=== PATIENT | male | born 1950 | race Caucasian/White ===

== ENCOUNTER → 2022-05-24 | Day surgery (SDC) | payer MEDICARE, BC ==
[~2022-05-24] MED LIST: ALPRAZolam 0.25 MG TAB PO PRN; ALPRAZolam 0.5 MG TAB PO PRN; ASPIRIN 325 MG TAB PO STA; ATORVASTATIN 80 MG TAB PO STA; HEPARIN SODIUM 1,000 UN/ML (10ML VL) IVP ONE; HEPARIN SODIUM,PORCINE 10,000 UNIT in SODIUM CHLORIDE 0.9% 1,000 ML IRRIGATION PRN; HEPARIN SODIUM,PORCINE 2,500 UNIT in SODIUM CHLORIDE 0.9% 250 ML IRRIGATION PRN; LIDOCAINE 1% INJ 10MG/ML (5 ML VIAL-PF) SQ ONE; MIDAZOLAM 2 MG/2 ML VIAL IVP ONE; NITROGLYCERIN SL TABS 0.4 MG TAB SUBLINGUAL PRN; RX INFO: IV CONTRAST WAS GIVEN 1 EACH MISC MISCELLANE PRN; SODIUM CHLORIDE 0.9% 1,000 ML IV SCH; SODIUM CHLORIDE 0.9% 1,000 ML in EMPTY BAG 1 BAG IV SCH; VERAPAMIL SYRINGE (5 MG/10 ML) IVP ONE; fentaNYL (PF) 50 MCG/ML 2 ML AMP IVP ONE
[2022-05-24 08:46] LABS: Glucose,Whole Blood 181 mg/dL (70-110)
[2022-05-24 08:55] VITALS: RESP 16; TEMP 97.9
[2022-05-24 08:55] LABS: Basophils % (A) 0 %; Eosinophils # (A) 0.1 k/uL (0-0.7); Eosinophils % (A) 1 %; HCT 42.9 % (39.0-53.0); HGB 15.4 gm/dL (13.0-17.5); Lymphocytes % (A) 17 %; MCH 31.4 pg (25.0-35.0); MCV 87.2 fL (80.0-100.0); Mean Platelet Volume 8.1; Monocytes # (A) 0.3 k/uL (0-1.0); Monocytes % (A) 5 %; Neutrophils # (A) 4.3 k/uL (1.3-7.7); Neutrophils % (A) 74 %; Platelet Count 185 k/uL (150-450); RBC 4.92 m/uL (4.30-5.90); RDW 13.8 % (11.5-15.5); WBC 5.7 k/uL (3.8-10.6)
[2022-05-24 09:15] LABS: African American GFR (CKD) >90 (>60 ml/min/1.73 sqM); Anion Gap 8 mmol/L; Blood Urea Nitrogen 18 mg/dL (9-20); Carbon Dioxide 26 mmol/L (22-30); Chloride 107 mmol/L (98-107); Glucose 198 mg/dL (74-99); Non-African American GFR(CKD) 88 (>60 ml/min/1.73 sqM); Potassium 4.7 mmol/L (3.5-5.1); Sodium 141 mmol/L (137-145)
[2022-05-24] MEDS: BENZOCAINE SPRAY 1 CAN MUCOUS MEM ONE ×2 (10:55→10:59)
--- NOTE | 2022-05-24 11:13 | P.PCN ---
Date of Procedure: 05/24/22 Description of Procedure: TRANSESOPHAGEAL ECHOCARDIOGRAM INTERNATIONAL ACCOUNTANT: TED BARKLEY MD, RPVI INDICATION: Aortic stenosis SEDATION: Conscious sedation COMPLICATION: None LEVEL OF SEDATION Moderate with sedation length of 12 minutes PROCEDURE DESCRIPTION: After obtaining an informed consent, the patient was brought to transesophageal echocardiogram room. Pulse oximetry and heart monitors were attached to the patient. The patient throat was sprayed using lidocaine. The patient was turned into left lateral position. After that a bite guard was placed. After an appropriate conscious sedation was initiated, the transesophageal echocardiogram was advanced through a bite guard into the mid esophagus. A 2-D echocardiogram images, color Doppler images, continuous wave images, pulse-wave images, of various cardiac structure were performed. After that the transesophageal echocardiogram probe was advanced into the stomach and fixed to obtain transgastric view was. The probe was brought into the mid esophagus. Inter-atrial septum was interrogated using 2D images, color Doppler images, and then contrast study. After that transesophageal echocardiogram was withdrawn out and upon withdrawing the descending thoracic aorta all the way up to the a [facility] was evaluated. FINDING: The left ventricular dimension and systolic function appeared to be within normal limits with ejection fraction appears to be in the range of 50-55%. The right ventricle appeared to be mildly dilated with normal function. The left atrium and right atrium are mildly dilated. The left atrial appendage appeared to be free from any thrombus. Aortic valve appears to be bicuspid follow-up with fusion of the right and left coronary cusps and evidence of severe aortic stenosis with mean gradient of 36 mmHg and and peak gradient of 73 mmHg. The peak systolic velocity was more than 4 m/s. There is mild aortic insufficiency seen. The mitral valve appeared to be mildly thickened with mild to moderate MR. Normal tricuspid valve and pulmonary valve. No evidence of pericardial effusion. CONCLUSION: 1. Normal left ventricular dimension and systolic function and normal right ventricular dimension and systolic function 2. Bicuspid aortic valve with fusion of the right and left coronary cusps and evidence of severe aortic stenosis by gradient 3. Mildly thickened mitral valve leaflets with mild to moderate MR 4. Mild biatrial enlargement 5. Intact interatrial septum and intact left atrial appendage 6. No evidence of pericardial effusion
--- NOTE | 2022-05-24 11:34 | P.PCN ---
Date of Procedure: 05/24/22 Operative Findings: CARDIAC CATHETERIZATION PERFORMING PHYSICIAN: Melvin Pacheco MD, RPVI PROCEDURE PERFORMED: Selective right and left coronary angiogram INDICATION: Aortic stenosis COMPLICATION: None APPROACH: Right radial artery LEVEL OF SEDATION: Moderate with a sedation length of 30 minutes PROCEDURE DESCRIPTION: After obtaining an informed consent, the patient was brought to cardiac agriculture laborer. Local anesthesia was performed using lidocaine subcutaneously. The right radial artery was cannulated using Seldinger technique, the guidewire passed easily, following that we advanced a 5-Romansh sheath dilator assembly, the wire and dilator were removed and sheath was flushed. Following that, 2 mg of verapamil along with 5000 unit heparin were given. Selective right and left coronary angiogram using a 6-Romansh JR4 and JL 3.5 cath eters. The procedure was completed there was no complication. SELECTIVE CORONARY ANGIOGRAM: The right coronary artery: Large caliber vessel and a dominant vessel. The RCA is angiographically normal. Distally bifurcates into PDA and PLV branches both appeared to be angiographically normal. Left main: It is angiographically normal and bifurcates into a LCx and LAD The left circumflex: Large caliber vessel nondominant vessel. The LCx system appears to be angiographically normal. The LCx gives rises into a large OM branch which appeared to be angiographically normal The left anterior descending artery: Large caliber vessel. The LAD is angiographically normal and gives rise into a diagonal branch which also appeared to be angiographically normal. CONCLUSION: 1. Normal coronary and POSTPROCEDURE MANAGEMENT: Evaluated the patient for aortic valve replacement
[2022-05-24 19:00] VITALS: PULSE 56
[2022-05-24 19:01] VITALS: BP 127/68
== END ==
LOC: EDSEX 05-17 12:00 → CATHCVL 08:18
PROVIDERS: ATTEND Internal Medicine Interventional Cardiology
DX: I35.0 Nonrheumatic aortic (valve) stenosis (principal)
CPT/HCPCS: 93312; 93320; 93325; 93454; 80048; 85025; C1769 ×2; C1894; J2250; J2001; J3010; J1644

== ENCOUNTER 2024-03-22 12:09 | Inpatient (IN) | payer MEDICARE, BC ==
--- NOTE | 2024-03-22 12:45 | ED ---
General Adult HPI - General Chief complaint: Shortness of Breath Stated complaint: SOB Time Seen by Provider: 03/22/24 12:13 Source: patient, RN/MD, EMS, RN notes reviewed, old records reviewed Mode of arrival: EMS Limitations: no limitations - History of Present Illness Initial comments: Patient is a 73-year-old male present to the emergency department as a transfer from [facility]. Patient has had progressive dyspnea over the past couple of weeks. Patient states his doctor questioned amiodarone toxicity. Patient has no cough. Dyspnea is exertional as well as orthopnea. No leg edema. No fever. No chest pain. Patient states symptoms do feel somewhat like previous CHF. Patient x-ray and CT scan showed bilateral pneumonia. - Related Data Home Medications Medication Instructions Recorded Confirmed Ezetimibe [Zetia] 10 mg PO HS 05/15/22 03/22/24 Fluticasone Nasal [place] [Flonase 2 spray EA NOSTRIL HS 05/15/22 03/22/24 Nasal [place]] Gabapentin [Neurontin] 300 mg PO BID 05/15/22 03/22/24 Omeprazole [PriLOSEC] 40 mg PO HS 05/15/22 03/22/24 Rivaroxaban [Xarelto] 20 mg PO HS 05/15/22 03/22/24 Tamsulosin [Flomax] 0.4 mg PO HS 05/15/22 03/22/24 Albuterol Inhaler [Ventolin Hfa 1 - 2 puff INHALATION RT-Q4H PRN 03/22/24 03/22/24 Inhaler] Amiodarone [Cordarone] 200 mg PO DAILY 03/22/24 03/22/24 Furosemide [Lasix] 40 mg PO DAILY 03/22/24 03/22/24 Metoprolol Succinate (ER) [Toprol 50 mg PO BID 03/22/24 03/22/24 Xl] Osimertinib Mesylate [Tagrisso] 80 mg PO DAILY 03/22/24 03/22/24 Spironolactone 25 mg PO HS 03/22/24 03/22/24 metFORMIN HCL 500 mg PO BID 03/22/24 03/22/24 Allergies Allergy/AdvReac Type Severity Reaction Status Date / Time No Known Allergies Allergy Verified 03/22/24 13:36 Review of Systems ROS Statement: Those systems with pertinent positive or pertinent negative responses have been documented in the HPI. ROS Other: All systems not noted in ROS Statement are negative. Constitutional: Denies: fever, chills Eyes: Denies: eye pain Respiratory: Reports: as per HPI, dyspnea. Denies: cough Cardiovascular: Reports: dyspnea on exertion, orthopnea. Denies: chest pain, edema Gastrointestinal: Denies: abdominal pain Musculoskeletal: Denies: back pain Past Medical History Past Medical History: Atrial Fibrillation, Diabetes Mellitus, GERD/Reflux, Hyperlipidemia, Hypertension, Neurologic Disorder, Prostate Disorder, Sleep Apnea/CPAP/BIPAP Additional Past Medical History / Comment(s): getting tired with exertion lately. 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 spinal stenosis lower back. arthritis ( psoriatic). uses cpap History of Any Multi-Drug Resistant Organisms: None Reported Additional Past Surgical History / Comment(s): both knee replaced. carpal tunnel bilaterally. braydon nerve surgery. glossopharyngeal neuralgia brain procedure. coritsone shots in wrists Past Anesthesia/Blood Transfusion Reactions: No Reported Reaction Past Psychological History: No Psychological Hx Reported Smoking Status: Former smoker Past Alcohol Use History: Daily Past Drug Use History: None Reported - Past Family History Mother Family Medical History: No Reported History Father Family Medical History: Coronary Artery Disease (CAD) Additional Family Medical History / Comment(s): tripel by pass General Exam Limitations: no limitations General appearance: alert, in no apparent distress Head exam: Present: normocephalic Eye exam: Present: normal appearance, PERRL, EOMI Neck exam: Present: normal inspection Respiratory exam: Present: normal lung sounds bilaterally. Absent: respiratory distress, wheezes, rales, decreased breath sounds Cardiovascular Exam: Present: regular rate, normal rhythm GI/Abdominal exam: Present: soft. Absent: tenderness Extremities exam: Present: normal inspection. Absent: pedal edema, calf tenderness Neurological exam: Present: alert Psychiatric exam: Present: normal affect, normal mood Skin exam: Present: normal color Course Vital Signs 03/22/24 03/22/24 12:11 13:39 Pulse Rate 81 78 Respiratory 17 18 Rate Blood Pressure 125/75 124/66 O2 Sat by Pulse 93 L 93 L Oximetry Procedures - ABG Interpretation Ph: 7.44 PCO2: 39 PO2: 41 Bicarbonate: 13 Interpretation: other (hypoxia) Medical Decision Making - Medical Decision Making Was pt. sent in by a medical professional or institution (, TOREY, GROCERY SACKER, urgent care, hospital, or residential...) When possible be specific @ -Patient was transferred from [facility] Did you speak to anyone other than the patient for history (EMS, parent, family, police, friend...)? What history was obtained from this source @ -Transferring physician Did you review nursing and triage notes (agree or disagree)? Why? @ -I reviewed and agree with nursing and triage notes Were old charts reviewed (outside hosp., previous admission, EMS record, old EKG, old radiological studies, urgent care reports/EKG's, residential records)? Report findings @ -Chart reviewed from [facility] Differential Diagnosis (chest pain, altered mental status, abdominal pain women, abdominal pain men, vaginal bleeding, weakness, fever, dyspnea, syncope, headache, dizziness, GI bleed, back pain, seizure, CVA, palpatations, mental health, musculoskeletal)? @ -Differential Dyspnea: Coronary syndrome, arrhythmia, tamponade, asthma, COPD, pulmonary embolism, pneumonia, pneumothorax, pulmonary effusion, anaphylaxis, diabetic ketoacidosis, flailed chest, pulmonary contusion, diaphragmatic rupture, anemia, neuromuscular, this is not meant to be an all-inclusive list. EKG interpreted by me (3pts min.). @ -As above X-rays interpreted by me (1pt min.). @ -None done CT interpreted by me (1pt min.). @ -None done U/S interpreted by me (1pt. min.). @ -None done What testing was considered but not performed or refused? (CT, X-rays, U/S, labs)? Why? @ -None What meds were considered but not given or refused? Why? @ -None Did you discuss the management of the patient with other professionals (professionals i.e. , TOREY, GROCERY SACKER, lab, RT, psych nurse, social services specialist, mumps developer, teacher, international first officer, social work case manager)? Give summary @ -[facility] Dr. Epsteni who will admit covering Dr. Arciniega Was smoking cessation discussed for >3mins.? @ -No Was critical care preformed (if so, how long)? @ -No Were there social determinants of health that impacted care today? How? (Homelessness, low income, unemployed, alcoholism, drug addiction, transportation, low edu. Level, literacy, decrease access to med. care, senior living, rehab)? @ -No Was there de-escalation of care discussed even if they declined (Discuss DNR or withdrawal of care, Hospice)? DNR status @ -No What co-morbidities impacted this encounter? (DM, HTN, Smoking, COPD, CAD, Cancer, CVA, ARF, Chemo, Hep., AIDS, mental health diagnosis, sleep apnea, morbid obesity)? @ -History of A-fib and CHF Was patient admitted / discharged? Hospital course, mention meds given and route, prescriptions, significant lab abnormalities, going to OR and other pertinent info. @ -Patient presents with dyspnea with evaluation concerning for pneumonia. Patient will be admitted and antibiotics will be continued. Consults will be placed. Admission orders written. Undiagnosed new problem with uncertain prognosis? @ -No Drug Therapy requiring intensive monitoring for toxicity (Heparin, Nitro, Insulin, Cardizem)? @ -No Were any procedures done? @ -No Diagnosis/symptom? @ -Bilateral pneumonia Acute, or Chronic, or Acute on Chronic? @ -Acute Uncomplicated (without systemic symptoms) or Complicated (systemic symptoms)? @ -Complicated with hypoxia Side effects of treatment? @ -No Exacerbation, Progression, or Severe Exacerbation? @ -No Poses a threat to life or bodily function? How? (Chest pain, [place], HI, pneumonia, PE, COPD, DKA, ARF, appy, cholecystitis, CVA, Diverticulitis, Homicidal, Suicidal, threat to staff... and all critical care pts) @ -Threat to pulmonary function - Lab Data Lab Results 03/22/24 Range/Units 12:48 Sample Site rrad ABG pH 7.44 (7.35-7.45) ABG pCO2 39 (35-45) mmHg ABG pO2 42 L* (83-108) mmHg ABG HCO3 27 H (21-25) mmol/L ABG Total CO2 28 H (19-24) mmol/L ABG O2 Saturation 80.8 L (94-97) % ABG Base Excess 2.4 mmol/L Von Test Yes Hemoglobin 13.6 (13.0-17.5) gm/dL FiO2 21 % Disposition Clinical Impression: Pneumonia, Hypoxia Disposition: ADMITTED IP TO THIS HOSP Condition: Serious Is patient prescribed a controlled substance at d/c from ED?: No Time of Disposition: 12:44
[2024-03-22] MEDS ORDERED: PNEUMONIA PROTOCOL UTILIZED 1 EACH MISC PO PRN (12:48)
[2024-03-22 12:53] LABS: ABG Base Excess 2.4 mmol/L; ABG HCO3 27 mmol/L (21-25); ABG Oxygen Saturation 80.8 % (94-97); ABG PCO2 39 mmHg (35-45); ABG PH 7.44 (7.35-7.45); ABG TCO2 28 mmol/L (19-24); Allen Test Performed? Yes
[2024-03-22 12:57] LABS: ABG PO2 42 mmHg (83-108)
[2024-03-22] MEDS ORDERED: RX INFO: IV CONTRAST WAS GIVEN 1 EACH MISC MISCELLANE PRN (16:24)
[2024-03-22] MEDS: ALBUTEROL NEBULIZED 2.5 MG/3 ML INHALATION PRN (16:24)
--- NOTE | 2024-03-22 17:56 | P.CNPUL ---
History of Present Illness Consult date: 03/22/24 Reason for consult: dyspnea History of present illness: 71-year-old male patient presenting with subacute shortness of breath. The patient has his majority of his care through [facility]. The patient was diagnosed having non-small cell lung cancer back in 2022. He was given stage IV disease based on the presence of a malignant pleural effusion. He was started on Tagrisso with good clinical response and the patient has been responding very well and recent CAT scan of the chest was done in January 2024 at [facility] indicated no residual malignancy. He is also noted congestion heart failure, he has undergone previous aortic valve replacement/TAVR and is known to have coronary artery disease and chronic atrial fibrillation. Other comorbidities include diabetes mellitus, hypertension hyperlipidemia and osteoarthritis. The patient was hospitalized few months back at [facility] for worsening shortness of breath and he was told that his shortness of breath was attributed to CHF. Currently is on amiodarone 200 mg p.o. daily. He is also on anticoagulation with Xarelto. He has developed progressive increased dyspnea. Chest x-ray that was done at an outside hospital indicated pneumonia and for that reason the patient was transferred to us. He is currently on 4 L of oxygen by nasal cannula. Blood gas on room air oxygen showed a pH of 7.4 with a pCO2 of 39 and pO2 of 41. The viral screen that was done also in an outside hospital was negative for RSV, influenza and COVID-19. No chest pain. No edema in lower extremities. No palpitation. No angina. No palpitations. Review of Systems Constitutional: Denies chills, Denies fever Eyes: denies as per HPI, denies blurred vision, denies bulging eye, denies decreased vision, denies diplopia, denies discharge, denies dry eye, denies irritation, denies itching, denies pain, denies photophobia, denies loss of peripheral vision, denies loss of vision, denies tunnel vision/blind spots Ears: deny: decreased hearing, ear discharge, earache, tinnitus Ears, nose, mouth and throat: Reports as per HPI Breasts: absent: as per HPI, gynecomastia Cardiovascular: Reports decreased exercise tolerance, Reports dyspnea on exertion, Reports irregular heart beat, Reports shortness of breath Respiratory: Reports as per HPI, Reports dyspnea Gastrointestinal: Reports as per HPI Genitourinary: Reports as per HPI Musculoskeletal: Reports as per HPI Musculoskeletal: absent: ankle pain, ankle stiffness, ankle swelling, as per HPI, elbow pain, elbow stiffness, elbow swelling, foot pain, foot stiffness, foot swelling, hand pain, hand stiffness, hand swelling, hip pain, hip stiffness, hip swelling, knee pain, knee stiffness, knee swelling, shoulder pain, shoulder stiffness, shoulder swelling, wrist pain, wrist stiffness, wrist swelling Integumentary: Reports as per HPI Neurological: Reports as per HPI Psychiatric: Reports as per HPI Endocrine: Reports as per HPI Hematologic/Lymphatic: Reports as per HPI Allergic/Immunologic: Reports as per HPI Past Medical History Past Medical History: Atrial Fibrillation, Diabetes Mellitus, GERD/Reflux, Hyperlipidemia, Hypertension, Neurologic Disorder, Prostate Disorder, Sleep Apnea/CPAP/BIPAP Additional Past Medical History / Comment(s): getting tired with exertion lately. 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 spinal stenosis lower back. arthritis ( psoriatic). uses cpap History of Any Multi-Drug Resistant Organisms: None Reported Additional Past Surgical History / Comment(s): both knee replaced. carpal tunnel bilaterally. braydon nerve surgery. glossopharyngeal neuralgia brain procedure. coritsone shots in wrists Past Anesthesia/Blood Transfusion Reactions: No Reported Reaction Past Psychological History: No Psychological Hx Reported Smoking Status: Former smoker Past Alcohol Use History: Daily Past Drug Use History: None Reported - Past Family History Mother Family Medical History: No Reported History Father Family Medical History: Coronary Artery Disease (CAD) Additional Family Medical History / Comment(s): tripel by pass Medications and Allergies Home Medications Medication Instructions Recorded Confirmed Type Ezetimibe [Zetia] 10 mg PO HS 05/15/22 03/22/24 History Fluticasone Nasal [place] [Flonase 2 spray EA NOSTRIL HS 05/15/22 03/22/24 History Nasal [place]] Gabapentin [Neurontin] 300 mg PO BID 05/15/22 03/22/24 History Omeprazole [PriLOSEC] 40 mg PO HS 05/15/22 03/22/24 History Rivaroxaban [Xarelto] 20 mg PO HS 05/15/22 03/22/24 History Tamsulosin [Flomax] 0.4 mg PO HS 05/15/22 03/22/24 History Albuterol Inhaler [Ventolin Hfa 1 - 2 puff INHALATION RT-Q4H PRN 03/22/24 03/22/24 History Inhaler] Amiodarone [Cordarone] 200 mg PO DAILY 03/22/24 03/22/24 History Furosemide [Lasix] 40 mg PO DAILY 03/22/24 03/22/24 History Metoprolol Succinate (ER) [Toprol 50 mg PO BID 03/22/24 03/22/24 History Xl] Osimertinib Mesylate [Tagrisso] 80 mg PO DAILY 03/22/24 03/22/24 History Spironolactone 25 mg PO HS 03/22/24 03/22/24 History metFORMIN HCL 500 mg PO BID 03/22/24 03/22/24 History Allergies Allergy/AdvReac Type Severity Reaction Status Date / Time No Known Allergies Allergy Verified 03/22/24 13:36 Physical Exam Vitals: Vital Signs Temp Pulse Resp BP Pulse Ox 03/22/24 17:29 98.0 F 84 17 130/64 91 L 03/22/24 16:36 78 03/22/24 16:23 75 03/22/24 16:00 75 19 146/63 93 L 03/22/24 15:54 97.6 F 98 21 146/63 92 L 03/22/24 13:39 78 18 124/66 93 L 03/22/24 12:11 81 17 125/75 93 L Intake and Output 03/22/24 03/22/24 03/22/24 06:59 14:59 22:59 Other: Weight 115.666 kg Calm and comfortable, currently on 4 L of oxygen by nasal cannula Head exam was generally normal. There was no scleral icterus or corneal arcus. Mucous membranes were moist. Neck was supple and without jugular venous distension, thyromegaly, or carotid bruits. Carotids were easily palpable bilaterally. There was no adenopathy. Lungs show crackles in lung bases bilaterally, and with normal diaphragmatic excursion. No wheezes or rales were noted. Cardiac exam revealed the PMI to be normally situated and sized. The rhythm was irregular and no extrasystoles were noted during several minutes of a uscultation. The first and second heart sounds were normal and physiologic splitting of the second heart sound was noted. There were no murmurs, rubs, clicks, or gallops. Abdominal exam revealed normal bowel sounds. The abdomen was soft, non-tender, and without masses, organomegaly, or appreciable enlargement of the abdominal aorta. Examination of the extremities revealed easily palpable radial, femoral and pedal pulses. There was no cyanosis, clubbing or edema. Examination of the skin revealed no evidence of significant rashes, suspicious appearing nevi or other concerning lesions. Neurologically, the patient is awake and alert and the patient does not have any focal neurological deficit. Cranial nerves are essentially intact. Results - Laboratory Findings ABG ABG pH 7.44 (7.35-7.45) 03/22/24 12:48 ABG pCO2 39 mmHg (35-45) 03/22/24 12:48 ABG pO2 42 mmHg (83-108) L* 03/22/24 12:48 ABG O2 Saturation 80.8 % (94-97) L 03/22/24 12:48 Abnormal lab findings: Abnormal Labs 03/22/24 12:48 ABG pO2 42 L* ABG HCO3 27 H ABG Total CO2 28 H ABG O2 Saturation 80.8 L - Diagnostic Findings Chest x-ray: image reviewed Assessment and Plan Plan: Acute hypoxic respiratory failure, currently on 4 L of oxygen by nasal cannula Subacute dyspnea with worsening shortness of breath and development of hypoxemic respiratory failure, currently under investigation. Rule out underlying pneumonia bacterial versus viral. Rule out drug-induced pneumonitis may get secondary to Tagrisso or amiodarone. Malignancy progression is felt to be less likely as the patient has responded nicely to Tagrisso in the past. 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 History of malignant pleural effusion on the left Coronary artery disease History of aortic valve stenosis status post TAVR Obstructive sleep apnea Chronic A-fib, rate is controlled for now and the patient has a bundle branch block pattern, right-sided Hypertension Hyperlipidemia CHF with preserved LV function Diabetes mellitus type 2 Osteoarthritis Chronic back pain BPH Peripheral neuropathy Plan Keep the patient on O2 at 4 L/min nasal cannula Check procalcitonin level and proBNP level Check Legionella urine antigen The viral screen has been negative Continue current antibiotic coverage with essentially empiric Hold Tagrisso Hold amiodarone Check CAT scan of the chest with contrast Will start steroids if there is concern for drug-induced pneumonitis Will continue to follow
--- NOTE | 2024-03-22 19:27 | P.HPIM ---
History of Present Illness H&P Date: 03/22/24 Chief Complaint: Shortness of breath 73-year-old male present to the emergency department as a transfer from [facility]. Patient has had progressive dyspnea over the past couple of weeks. Patient states his doctor questioned amiodarone toxicity. Patient has no cough. Dyspnea is exertional as well as orthopnea. No leg edema. No fever. No chest pain. Patient states symptoms do feel somewhat like previous CHF. Patient x-ray and CT scan showed bilateral pneumonia. The patient was hospitalized few months back at [facility] for worsening shortness of breath and he was told that his shortness of breath was attributed to CHF. Currently is on amiodarone 200 mg p.o. daily. He is also on anticoagulation with Xarelto. He has developed progressive increased dyspnea. Chest x-ray that was done at an outside hospital indicated pneumonia and for that reason the patient was transferred to us. He is currently on 4 L of oxygen by nasal cannula. Blood gas on room air oxygen showed a pH of 7.4 with a pCO2 of 39 and pO2 of 41. Review of Systems REVIEW OF SYSTEMS: CONSTITUTIONAL: No fever, no malaise, no fatigue. HEENT: No recent visual problems or hearing problems. Denied any sore throat. CARDIOVASCULAR: No chest pain, orthopnea, PND, no palpitations, no syncope. PULMONARY: No shortness of breath, no cough, no hemoptysis. GASTROINTESTINAL: No diarrhea, no nausea, no vomiting, no abdominal pain. NEUROLOGICAL: No headaches, no weakness, no numbness. HEMATOLOGICAL: Denies any bleeding or petechiae. GENITOURINARY: Denies any burning micturition, frequency, or urgency. MUSCULOSKELETAL/RHEUMATOLOGICAL: Denies any joint pain, swelling, or any muscle pain. ENDOCRINE: Denies any polyuria or polydipsia. The rest of the 14-point review of systems is negative. Past Medical History Past Medical History: Atrial Fibrillation, Diabetes Mellitus, GERD/Reflux, Hyperlipidemia, Hypertension, Neurologic Disorder, Prostate Disorder, Sleep Apnea/CPAP/BIPAP Additional Past Medical History / Comment(s): getting tired with exertion lately. 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 spinal stenosis lower back. arthritis ( psoriatic). uses cpap History of Any Multi-Drug Resistant Organisms: None Reported Additional Past Surgical History / Comment(s): both knee replaced. carpal tunnel bilaterally. braydon nerve surgery. glossopharyngeal neuralgia brain procedure. coritsone shots in wrists Past Anesthesia/Blood Transfusion Reactions: No Reported Reaction Past Psychological History: No Psychological Hx Reported Smoking Status: Former smoker Past Alcohol Use History: Daily Past Drug Use History: None Reported - Past Family History Mother Family Medical History: No Reported History Father Family Medical History: Coronary Artery Disease (CAD) Additional Family Medical History / Comment(s): tripel by pass Medications and Allergies Home Medications Medication Instructions Recorded Confirmed Type Ezetimibe [Zetia] 10 mg PO HS 05/15/22 03/22/24 History Fluticasone Nasal [place] [Flonase 2 spray EA NOSTRIL HS 05/15/22 03/22/24 History Nasal [place]] Gabapentin [Neurontin] 300 mg PO BID 05/15/22 03/22/24 History Omeprazole [PriLOSEC] 40 mg PO HS 05/15/22 03/22/24 History Rivaroxaban [Xarelto] 20 mg PO HS 05/15/22 03/22/24 History Tamsulosin [Flomax] 0.4 mg PO HS 05/15/22 03/22/24 History Albuterol Inhaler [Ventolin Hfa 1 - 2 puff INHALATION RT-Q4H PRN 03/22/24 03/22/24 History Inhaler] Amiodarone [Cordarone] 200 mg PO DAILY 03/22/24 03/22/24 History Furosemide [Lasix] 40 mg PO DAILY 03/22/24 03/22/24 History Metoprolol Succinate (ER) [Toprol 50 mg PO BID 03/22/24 03/22/24 History Xl] Osimertinib Mesylate [Tagrisso] 80 mg PO DAILY 03/22/24 03/22/24 History Spironolactone 25 mg PO HS 03/22/24 03/22/24 History metFORMIN HCL 500 mg PO BID 03/22/24 03/22/24 History Allergies Allergy/AdvReac Type Severity Reaction Status Date / Time No Known Allergies Allergy Verified 03/22/24 13:36 Physical Exam Vitals: Vital Signs Pulse Resp BP Pulse Ox 03/22/24 13:39 78 18 124/66 93 L 03/22/24 12:11 81 17 125/75 93 L Intake and Output 03/21/24 03/22/24 03/22/24 22:59 06:59 14:59 Other: Weight 115.666 kg General appearance: alert, in no apparent distress Head exam: Present: normocephalic Eye exam: Present: normal appearance, PERRL, EOMI Neck exam: Present: normal inspection Respiratory exam: Present: normal lung sounds bilaterally. Absent: respiratory distress, wheezes, rales, decreased breath sounds Cardiovascular Exam: Present: regular rate, normal rhythm GI/Abdominal exam: Present: soft. Absent: tenderness Extremities exam: Present: normal inspection. Absent: pedal edema, calf tenderness Neurological exam: Present: alert Psychiatric exam: Present: normal affect, normal mood Skin exam: Present: normal color Results Labs: Abnormal Lab Results - Last 24 Hours (Table) 03/22/24 Range/Units 12:48 ABG pO2 42 L* (83-108) mmHg ABG HCO3 27 H (21-25) mmol/L ABG Total CO2 28 H (19-24) mmol/L ABG O2 Saturation 80.8 L (94-97) % Assessment and Plan Assessment: 1. Acute hypoxic respiratory failure -Patient is currently on O2 at 4 L per nasal cannula; we will plan to titrate or wean as able 2. Possible pneumonia -Patient has been placed on IV Rocephin and azithromycin -Bronchodilator nebulizer treatments 4 times daily and as needed -Pulmonary is consulted; recommending to continue with empiric antibiotic coverage and also starting steroids for concern for possible drug-induced pneumonitis -CT of the chest is ordered and pending -Check urine Legionella antigen 3. Stage IV pulmonary adenocarcinoma; currently on Tagrisso, the third generation tyrosine kinase and is inhibitor for treatment of EGFR-TKI positive patients and the patient has received treatment through [facility]; Tagrisso is placed on hold per pulmonary recommendations. 4. History of left-sided malignant pleural effusion 5. Hypertension; metoprolol 50 mg twice daily; Aldactone 25 mg nightly 6. Hyperlipidemia; Zetia 10 mg daily 7. Diabetes mellitus type 2; metformin 500 mg twice daily; monitor Accu-Cheks q. ACH S with insulin sliding scale 8. Chronic atrial fibrillation; pulmonary recommending to hold amiodarone 9. Coronary artery disease/CHF DVT prophylaxis; SCDs/systemic anticoagulation CODE STATUS; full code
[2024-03-22] MEDS: RIVAROXABAN 20 MG TAB PO SCH (20:28)
[2024-03-22] MEDS: PANTOPRAZOLE 40 MG TABLET PO SCH (20:29)
[2024-03-22] MEDS: TAMSULOSIN 0.4 MG CAP.ER.24H PO SCH (20:29)
[2024-03-22] MEDS: metFORMIN 500 MG TAB PO SCH (20:29)
[2024-03-22] MEDS: SPIRONOLACTONE 25 MG TAB PO SCH (20:29)
[2024-03-22] MEDS: GABAPENTIN 300 MG CAP PO SCH (20:29)
[2024-03-22] MEDS: METOPROLOL SUCCINATE (ER) 50 MG TAB.ER.24H PO SCH (20:29)
[2024-03-22] MEDS: EZETIMIBE 10 MG TAB PO SCH (20:29)
[2024-03-22] MEDS: FLUTICASONE NASAL 50MCG/SPRAY 16GM BTL EA NOSTRIL SCH (20:31)
--- NOTE | 2024-03-22 23:58 | CT ---
EXAMINATION TYPE: CT chest w con CT DLP: 618.4 mGycm, Automated exposure control for dose reduction was used. DATE OF EXAM: 03/22/2024 7:54 PM COMPARISON: None. . CLINICAL INDICATION:Male, 73 years old with history of ILD; PHH, ILD, sob, hypoxia TECHNIQUE: Multiple axial images were obtained through the chest. Sagittal and coronal reformats were created for review. Contrast used:80 mL of Isovue 300 with IV Contrast Oral contrast used: (None if empty) FINDINGS: LUNGS/ PLEURA: There are fibrotic changes bilaterally in the mid to lower lungs, left greater than ri ght. There are significant interspersed groundglass opacities bilaterally as well. Lqzbs-[id number] left pleural effusion and trace right pleural effusion. No pneumothorax. AIRWAY: Central airways are patent. No visualized bronchiectasis. LOWER NECK: No significant findings. Unremarkable thyroid. MEDIASTINUM: Several nonenlarged mediastinal nodes. Mildly enlarged right subcarinal node with short axis 1.3 cm. No bulky or necrotic adenopathy. HEART: Heart is moderately enlarged. Status post TAVR. Moderate aortic calcification. Mild/moderate m itral valve calcification. No pericardial effusion. Mildly prominent pericardial fat. Small hiatal he rnia suggested with slightly patulous distal esophagus. VASCULATURE: Moderate atherosclerotic calcifications of the aorta and branches. Aortic measurements are difficult due to motion however the ascending aorta seems ectatic measuring up to 4.1 cm maximum. There is no dissection flap seen. Descending aorta is 2.9 cm. Suboptimal phase of contrast for evalu ating the pulmonary arteries, but there is no gross evidence of embolus. Pulmonary trunk is enlarged measuring 3.3 cm, the right pulmonary artery is 2.9 cm and the left is about 2.4 cm. SOFT TISSUES/LYMPH NODES: Unremarkable soft tissues. No axillary adenopathy. UPPER ABDOMEN: No significant findings. MUSCULOSKELETAL: No acute osseous abnormalities. Moderate disc degeneration changes are present throu ghout the visualized thoracolumbar spine. IMPRESSION: 1. Pulmonary fibrotic changes bilaterally, likely concordant with the patient's history of interstit ial lung disease. 2. Significant interspersed groundglass opacities bilaterally, may reflect exacerbation of interstit ial lung disease, other superimposed infectious/inflammatory process, and/or edema. 3. [id number] left pleural effusion and trace right pleural effusion. 4. Cardiomegaly and findings of pulmonary arterial hypertension. [facility], , 03/22/2024 11:56 PM
[2024-03-23] MEDS: ACETAMINOPHEN TAB 325 MG TAB PO PRN (00:25)
[2024-03-23 07:38] LABS: Basophils % (A) 0 %; Eosinophils # (A) 0.1 k/uL (0-0.7); Eosinophils % (A) 1 %; HCT 39.8 % (39.0-53.0); HGB 12.9 gm/dL (13.0-17.5); Lymphocytes # (A) 0.6 k/uL (1.0-4.8); Lymphocytes % (A) 7 %; MCH 28.8 pg (25.0-35.0); MCHC 32.3 g/dL (31.0-37.0); MCV 89.1 fL (80.0-100.0); Mean Platelet Volume 8.2; Monocytes # (A) 0.6 k/uL (0-1.0); Monocytes % (A) 7 %; Neutrophils # (A) 6.3 k/uL (1.3-7.7); Neutrophils % (A) 82 %; Platelet Count 133 k/uL (150-450); RBC 4.47 m/uL (4.30-5.90); RDW 15.4 % (11.5-15.5); WBC 7.6 k/uL (3.8-10.6)
[2024-03-23 07:47] LABS: African American GFR (CKD) >90 (>60 ml/min/1.73 sqM); Anion Gap 6 mmol/L; Blood Urea Nitrogen 17 mg/dL (9-20); Calcium 8.7 mg/dL (8.4-10.2); Carbon Dioxide 27 mmol/L (22-30); Chloride 105 mmol/L (98-107); Glucose 151 mg/dL (74-99); Non-African American GFR(CKD) 80 (>60 ml/min/1.73 sqM); Potassium 4.3 mmol/L (3.5-5.1); Sodium 138 mmol/L (137-145)
[2024-03-23] MEDS ORDERED: NON FORMULARY DRUG (Osimertinib Mesylate [Tagrisso] 80 MG Tablet) PO SCH (09:00)
--- NOTE | 2024-03-23 09:16 | XR ---
EXAMINATION TYPE: XR chest 2V DATE OF EXAM: 03/23/2024 COMPARISON: 03/21/2024 from [facility] HISTORY: Pneumonia TECHNIQUE: Frontal and lateral views of the chest are obtained. FINDINGS: There are scattered fluffy partially consolidative airspace opacities in the mid-lower lung zones esthela aterally. The upper lung [place] are clear. The heart and pulmonary vasculature are normal and there is no pulmonary vascular congestion. There is a small left pleural effusion. There is no pneumothorax. IMPRESSION: Findings most consistent with bilateral pneumonia with small left effusion. No change compared to pre vious. IMPRESSION: No acute cardiopulmonary process. [facility], , 03/23/2024 9:13 AM
[2024-03-23] MEDS: FUROSEMIDE 40 MG TAB PO SCH (09:29)
[2024-03-23] MEDS: AZITHROMYCIN 500 MG TAB PO SCH (09:29)
--- NOTE | 2024-03-23 11:39 | P.CRDCN ---
History of Present Illness Consult date: 03/23/24 Requesting physician: Destin Thorne Reason for Consult (text): dyspnea, concern for amiodarone induced Chief complaint: shortness of breath History of present illness: This is a pleasant 73-year-old gentleman with a past medical history of bicuspid aortic valve with severe aortic stenosis for which she was initially recommended to undergo SAVR but was subsequently diagnosed with non-small cell lung cancer and started on treatment with Tagrisso so subsequently underwent TAVR at the [facility]. He underwent cardiac catheterization in [address] Solis which showed no evidence of coronary artery disease. He has been following at the [facility] for cardiology. He was diagnosed with atrial fibrillation in 2019 that was paroxysmal. He was subsequently found to h ave persistent atrial fibrillation in September of this year and underwent cardioversion which lasted about 4 days and he subsequently underwent cardioversion after amiodarone loading in November after being hospitalized with congestive heart failure, likely diastolic in nature. He had been feeling well maintained on amiodarone 200 mg daily and maintaining sinus mechanism. Recently he has been feeling progressively more short of breath but no edema or weight gain noted at home. He initially presented to [facility] and thought to have pneumonia and was therefore transferred here to [facility]. Has been evaluated by pulmonary and felt to have drug-induced pneumonitis secondary to either Tagrisso versus amiodarone. He is being initiated on steroids. Amiodarone and Tagrisso have been placed on hold. He is currently on 8 L nasal cannula. NT proBNP was not elevated. He is overall feeling a bit better. Patient's most recent echocardiogram was done at the [facility] heat which he was told to have normal heart function and minimal perivalvular leak. Past Medical History Past Medical History: Atrial Fibrillation, Cancer, Diabetes Mellitus, GERD/Reflux, Hyperlipidemia, Hypertension, Neurologic Disorder, Prostate Diso rder, Sleep Apnea/CPAP/BIPAP Additional Past Medical History / Comment(s): getting tired with exertion lately. 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 spinal stenosis lower back. arthritis ( psoriatic). uses cpap, Diagnosed with Stage 4 Lung Cancer in 07/17 at [facility]. History of Any Multi-Drug Resistant Organisms: None Reported Additional Past Surgical History / Comment(s): both knee replaced. carpal tunnel bilaterally. braydon nerve surgery. glossopharyngeal neuralgia brain procedure. coritsone shots in wrists (still currently getting injections), TAVR 01/2023 at [facility]. Past Anesthesia/Blood Transfusion Reactions: No Reported Reaction Smoking Status: Former smoker - Past Family History Mother Family Medical History: No Reported History Father Family Medical History: Coronary Artery Disease (CAD) Additional Family Medical History / Comment(s): tripel by pass Medications and Allergies Home Medications Medication Instructions Recorded Confirmed Type Ezetimibe [Zetia] 10 mg PO HS 05/15/22 03/22/24 History Fluticasone Nasal [place] [Flonase 2 spray EA NOSTRIL HS 05/15/22 03/22/24 History Nasal [place]] Gabapentin [Neurontin] 300 mg PO BID 05/15/22 03/22/24 History Omeprazole [PriLOSEC] 40 mg PO HS 05/15/22 03/22/24 History Rivaroxaban [Xarelto] 20 mg PO HS 05/15/22 03/22/24 History Tamsulosin [Flomax] 0.4 mg PO HS 05/15/22 03/22/24 History Albuterol Inhaler [Ventolin Hfa 1 - 2 puff INHALATION RT-Q4H PRN 03/22/24 03/22/24 History Inhaler] Amiodarone [Cordarone] 200 mg PO DAILY 03/22/24 03/22/24 History Furosemide [Lasix] 40 mg PO DAILY 03/22/24 03/22/24 History Metoprolol Succinate (ER) [Toprol 50 mg PO BID 03/22/24 03/22/24 History Xl] Osimertinib Mesylate [Tagrisso] 80 mg PO DAILY 03/22/24 03/22/24 History Spironolactone 25 mg PO HS 03/22/24 03/22/24 History metFORMIN HCL 500 mg PO BID 03/22/24 03/22/24 History Allergies Allergy/AdvReac Type Severity Reaction Status Date / Time No Known Allergies Allergy Verified 03/22/24 13:36 Physical Exam Vitals: Vital Signs Temp Pulse Pulse Resp BP BP Pulse Ox 03/23/24 07:47 91 L 03/23/24 04:19 03/23/24 04:00 97.6 F 80 18 108/63 94 L 03/23/24 01:10 03/23/24 01:04 90 03/23/24 00:54 91 03/23/24 00:00 99.4 F 89 18 134/73 92 L 03/22/24 22:29 98.1 F 93 20 148/77 93 L 03/22/24 20:26 99.8 F H 100 20 139/74 88 L 03/22/24 19:28 90 L 03/22/24 18:30 98.6 F 89 15 133/70 87 L 03/22/24 17:40 93 17 130/64 90 L 03/22/24 17:29 98.0 F 84 17 130/64 91 L 03/22/24 16:36 78 03/22/24 16:23 75 03/22/24 16:10 79 21 126/63 90 L 03/22/24 16:00 75 19 146/63 93 L 03/22/24 15:54 97.6 F 98 21 146/63 92 L 03/22/24 13:39 78 18 124/66 93 L 03/22/24 12:11 81 17 125/75 93 L FiO2 03/23/24 07:47 03/23/24 04:19 60 03/23/24 04:00 03/23/24 01:10 60 03/23/24 01:04 03/23/24 00:54 03/23/24 00:00 03/22/24 22:29 03/22/24 20:26 03/22/24 19:28 03/22/24 18:30 03/22/24 17:40 03/22/24 17:29 03/22/24 16:36 03/22/24 16:23 03/22/24 16:10 03/22/24 16:00 03/22/24 15:54 03/22/24 13:39 03/22/24 12:11 Intake and Output 03/22/24 03/23/24 03/23/24 22:59 06:59 14:59 Intake Total 540 1100 Balance 540 1100 Intake: Oral 540 1100 Other: Voiding Method Urinal Weight 115.666 kg 75.5 kg PHYSICAL EXAMINATION: This is a 73-year-old male in no apparent distress at the time of my examination. VITAL SIGNS: Reviewed. HEENT: Head is atraumatic, normocephalic. Pupils are equal, round. Sclerae anicteric. Conjunctivae are clear. Mucous membranes of the mouth are moist. Neck is supple. There is no elevated jugular venous pressure. No carotid bruit is heard. CHEST EXAMINATION: Clear to auscultation bilaterally. No wheezes rales or rhonchi. Respirations even and nonlabored. HEART EXAMINATION: Heart regular, positive S1 and S2. No S3. No S4. Diastolic murmur at the base. ABDOMEN: Soft, nontender. Bowel sounds are heard. No organomegaly noted. EXTREMITIES: 2+ peripheral pulses with no evidence of peripheral edema and no calf tenderness noted. NEUROLOGIC EXAMINATION: Patient is awake, alert and oriented x3. Results 03/23/24 07:15 03/23/24 07:15 CBC 03/23/24 Range/Units 07:15 WBC 7.6 (3.8-10.6) k/uL RBC 4.47 (4.30-5.90) m/uL Hgb 12.9 L (13.0-17.5) gm/dL Hct 39.8 (39.0-53.0) % Plt Count 133 L (150-450) k/uL Comprehensive Metabolic Panel 03/23/24 Range/Units 07:15 Sodium 138 (137-145) mmol/L Potassium 4.3 (3.5-5.1) mmol/L Chloride 105 (98-107) mmol/L Carbon Dioxide 27 (22-30) mmol/L BUN 17 (9-20) mg/dL Creatinine 0.95 (0.66-1.25) mg/dL Glucose 151 H (74-99) mg/dL Calcium 8.7 (8.4-10.2) mg/dL Current Medications Generic Name Dose Route Start Last Admin Trade Name Freq PRN Reason Stop Dose Admin Acetaminophen 650 mg 03/22/24 23:33 03/23/24 00:25 Acetaminophen Tab 325 Mg Tab PO 650 mg Q6HR PRN Administration Fever and/ or Pain Albuterol Sulfate 2.5 mg 03/22/24 13:44 03/23/24 00:52 Albuterol Nebulized 2.5 Mg/3 Ml INHALATION 2.5 mg RT-Q4H PRN Administration Shortness Of Breath Azithromycin 500 mg 03/23/24 09:00 03/23/24 09:29 Azithromycin 500 Mg Tab PO 03/24/24 09:01 500 mg DAILY NORA Administration Protocol Ezetimibe 10 mg 03/22/24 21:00 03/22/24 20:29 Ezetimibe 10 Mg Tab PO 10 mg HS NORA Administration Fluticasone Propionate 2 spray 03/22/24 21:00 03/22/24 20:31 Fluticasone Nasal 50mcg/[place] 16gm Btl EA NOSTRIL 2 spray HS NORA Administration Furosemide 40 mg 03/23/24 09:00 03/23/24 09:29 Furosemide 40 Mg Tab PO 40 mg DAILY NORA Administration Gabapentin 300 mg 03/22/24 21:00 03/23/24 09:29 Gabapentin 300 Mg Cap PO 300 mg BID NORA Administration Ceftriaxone Sodium 2 gm/ 50 mls @ 100 mls/hr 03/22/24 16:00 03/22/24 17:27 Sodium Chloride IVPB 03/25/24 09:29 100 mls/hr Q24HR NORA Administration Protocol Metformin HCl 500 mg 03/22/24 21:00 03/23/24 09:29 Metformin 500 Mg Tab PO 500 mg BID NORA Administration Methylprednisolone Sodium Succinate 60 mg 03/23/24 12:00 Methylprednisolone Sod Succi 125 Mg/2 Ml Vial IV Q6HR NORA Metoprolol Succinate 50 mg 03/22/24 21:00 03/23/24 09:29 Metoprolol Succinate (Er) 50 Mg Tab.Er.24h PO 50 mg BID NORA Administration Miscellaneous Information 1 each 03/22/24 12:48 Pneumonia Protocol Utilized 1 Each Misc PO ONCE PRN Per Protocol Miscellaneous Information 1 each 03/22/24 16:24 Rx Info: Iv Contrast Was Given 1 Each Misc MISCELLANE 03/24/24 16:24 DAILY PRN Per Protocol Pantoprazole Sodium 40 mg 03/22/24 21:00 03/22/24 20:29 Pantoprazole 40 Mg Tablet PO 40 mg HS NORA Administration Rivaroxaban 20 mg 03/22/24 21:00 03/22/24 20:28 Rivaroxaban 20 Mg Tab PO 20 mg HS NORA Administration Protocol Spironolactone 25 mg 03/22/24 21:00 03/22/24 20:29 Spironolactone 25 Mg Tab PO 25 mg HS NORA Administration Tamsulosin HCl 0.4 mg 03/22/24 21:00 03/22/24 20:29 Tamsulosin 0.4 Mg Cap.Er.24h PO 0.4 mg HS NORA Administration Intake and Output 03/22/24 03/23/24 03/23/24 22:59 06:59 14:59 Intake Total 540 1100 Balance 540 1100 Intake: Oral 540 1100 Other: Voiding Method Urinal Weight 115.666 kg 75.5 kg 03/23/24 07:15 03/23/24 07:15 EKG Interpretations (text) Sinus rhythm with a left bundle branch block Assessment and Plan Assessment: #1 acute hypoxic respiratory failure likely secondary to drug-induced pneumonitis secondary to Tagrisso versus amiodarone #2 persistent atrial fibrillation, status post cardioversion, maintaining sinus mechanism on amiodarone #3 status post TAVR #4 stage IV non-small cell lung cancer #5 left bundle branch block Plan: From cardiology's perspective continue to hold amiodarone. Continue anticoagulation and metoprolol. Obtain 2D echo with Doppler study to assess cardiac structure and function. Check TSH. We will obtain records from [facility]. We will continue to monitor the patient and provide further recommendations accordingly. [employer] note has been reviewed, I agree with a documented findings and plan of care. Patient was seen and examined.
--- NOTE | 2024-03-23 11:45 | P.PN ---
Subjective Progress Note Date: 03/23/24 73-year-old male present to the emergency department as a transfer from [facility]. Patient has had progressive dyspnea over the past couple of weeks. Patient states his doctor questioned amiodarone toxicity. Patient has no cough. Dyspnea is exertional as well as orthopnea. No leg edema. No fever. No chest pain. Patient states symptoms do feel somewhat like previous CHF. Patient x-ray and CT scan showed bilateral pneumonia. The patient was hospitalized few months back at [facility] for worsening shortness of breath and he was told that his shortness of breath was attributed to CHF. Currently is on amiodarone 200 mg p.o. daily. He is also on anticoagulation with Xarelto. He has developed progressive increased dyspnea. Chest x-ray that was done at an outside hospital indicated pneumonia and for that reason the patient was transferred to us. He is currently on 4 L of oxygen by nasal cannula. Blood gas on room air oxygen showed a pH of 7.4 with a pCO2 of 39 and pO2 of 41. -Patient currently maintaining oxygen saturation around 94% on HFNC at 9 liters; continues to get dyspneic and desaturates with ambulating to the bathroom Blood work completed this morning reveals a WBC of 7.6, hemoglobin of 12.9 and platelet count of 133, sodium 138, potassium 4.3, BUNs/creatinine of 17/0.95; BNP of 383, procalcitonin normal at 0.06 --Patient has been evaluated by pulmonary service and recommending to hold off on Tagrisso and amiodarone given possibility of drug-induced pneumonitis; patient remains on IV antibiotics for possible bacterial pneumonia; patient has been placed on Solu-Medrol 60 mg IV every 6 hours for possible pneumonitis -- Patient has been evaluated by cardiology and recommending to continue to hold amiodarone; patient remains on metoprolol and remains systemically anticoagulated for persistent atrial fibrillation; 2D echo is recommended and pending Objective - Vital Signs Vital signs: Vital Signs Temp 97.6 F 03/23/24 04:00 Pulse 80 03/23/24 04:00 Resp 18 03/23/24 04:00 BP 108/63 03/23/24 04:00 Pulse Ox 94 L 03/23/24 04:00 FiO2 60 03/23/24 04:19 Intake & Output 03/22/24 03/23/2403/23/24 18:59 06:59 18:59 Intake Total 540 Balance 540 Weight 115.666 kg 75.5 kg Intake: Oral 540 Other: Voiding Method Urinal - Exam General appearance: alert, in no apparent distress Head exam: Present: normocephalic Eye exam: Present: normal appearance, PERRL, EOMI Neck exam: Present: normal inspection Respiratory exam: Present: normal lung sounds bilaterally. Absent: respiratory distress, wheezes, rales, decreased breath sounds Cardiovascular Exam: Present: regular rate, normal rhythm GI/Abdominal exam: Present: soft. Absent: tenderness Extremities exam: Present: normal inspection. Absent: pedal edema, calf tenderness Neurological exam: Present: alert Psychiatric exam: Present: normal affect, normal mood Skin exam: Present: normal color - Labs CBC & Chem 7: 03/23/24 07:15 03/23/24 07:15 Labs: Abnormal Lab Results - Last 24 Hours (Table) 03/22/24 03/23/24 Range/Units 12:48 07:15 Hgb 12.9 L (13.0-17.5) gm/dL Plt Count 133 L (150-450) k/uL Lymphocytes # 0.6 L (1.0-4.8) k/uL ABG pO2 42 L* (83-108) mmHg ABG HCO3 27 H (21-25) mmol/L ABG Total CO2 28 H (19-24) mmol/L ABG O2 Saturation 80.8 L (94-97) % Assessment and Plan Assessment: 1. Acute hypoxic respiratory failure -Patient is currently on O2 at 4 L per nasal cannula; we will plan to titrate or wean as able 2. Possible pneumonia -Patient has been placed on IV Rocephin and azithromycin -Bronchodilator nebulizer treatments 4 times daily and as needed -Pulmonary is consulted; recommending to continue with empiric antibiotic coverage and also starting steroids for concern for possible drug-induced pneumonitis -CT of the chest is ordered and pending -Check urine Legionella antigen 3. Stage IV pulmonary adenocarcinoma; currently on Tagrisso, the third generation tyrosine kinase and is inhibitor for treatment of EGFR-TKI positive patients and the patient has received treatment through [facility]; Tagrisso is placed on hold per pulmonary recommendations. 4. History of left-sided malignant pleural effusion 5. Hypertension; metoprolol 50 mg twice daily; Aldactone 25 mg nightly 6. Hyperlipidemia; Zetia 10 mg daily 7. Diabetes mellitus type 2; metformin 500 mg twice daily; monitor Accu-Cheks q. ACH S with insulin sliding scale 8. Chronic atrial fibrillation; pulmonary recommending to hold amiodarone 9. Coronary artery disease/CHF DVT prophylaxis; SCDs/systemic anticoagulation CODE STATUS; full code
[2024-03-23] MEDS: methylPREDNISolone SOD SUCCI 125 MG/2 ML VIAL IV SCH (12:17)
--- NOTE | 2024-03-23 13:49 | P.PN ---
Subjective Progress Note Date: 03/23/24 On 03/23/2024, the patient is being seen for a follow-up. Overnight, the oxygenation has gotten worse and the patient is currently on 80 days of oxygen by nasal cannula. Denies having any worsening in the breathing. A full CAT scan of the chest was done yesterday and the patient was found to have diffuse bilateral groundglass pulm infiltrates more so in the middle lung base bilaterally. There is a tiny left-sided pleural effusion and a trace right- sided pleural effusion. No evidence of any pneumothorax. There is also cardiomegaly along with evidence of pulmonary arterial hypertension. I suspect those findings are drug-induced pneumonitis. Infectious etiologies are felt to be less likely. The patient's proBNP level was at 383 and the procalcitonin level was at 0.06. Electrolytes are all within normal limits on today's evaluation. The white cell count is at 7.6 with a hemoglobin 12.9 and a platelet count of 133. Awake and alert. Does not look toxic at all. Repeat echocardiogram was ordered. Objective - Vital Signs Vital signs: Vital Signs Temp 98.5 F 03/23/24 11:25 Pulse 84 03/23/24 11:25 Resp 16 03/23/24 11:25 BP 136/74 03/23/24 11:25 Pulse Ox 92 L 03/23/24 11:25 FiO2 60 03/23/24 04:19 Intake & Output 03/22/24 03/23/24 03/23/24 18:59 06:59 18:59 Intake Total 540 1100 Balance 540 1100 Weight 115.666 kg 75.5 kg Intake: Oral 540 1100 Other: Voiding Method Urinal - Exam Calm and comfortable, currently on 4 L of oxygen by nasal cannula Head exam was generally normal. There was no scleral icterus or corneal arcus. Mucous membranes were moist. Neck was supple and without jugular venous distension, thyromegaly, or carotid bruits. Carotids were easily palpable bilaterally. There was no adenopathy. Lungs show crackles in lung bases bilaterally, and with normal diaphragmatic excursion. No wheezes or rales were noted. Cardiac exam revealed the PMI to be normally situated and sized. The rhythm was irregular and no extrasystoles were noted during several minutes of auscultation. The first and second heart sounds were normal and physiologic splitting of the second heart sound was noted. There were no murmurs, rubs, clicks, or gallops. Abdominal exam revealed normal bowel sounds. The abdomen was soft, non-tender, and without masses, organomegaly, or appreciable enlargement of the abdominal aorta. Examination of the extremities revealed easily palpable radial, femoral and pedal pulses. There was no cyanosis, clubbing or edema. Examination of the skin revealed no evidence of significant rashes, suspicious appearing nevi or other concerning lesions. Neurologically, the patient is awake and alert and the patient does not have any focal neurological deficit. Cranial nerves are essentially intact. - Labs CBC & Chem 7: 03/23/24 07:15 03/23/24 07:15 Labs: Abnormal Lab Results - Last 24 Hours (Table) 03/23/24 03/23/24 Range/Units 07:15 07:15 Hgb 12.9 L (13.0-17.5) gm/dL Plt Count 133 L (150-450) k/uL Lymphocytes # 0.6 L (1.0-4.8) k/uL Glucose 151 H (74-99) mg/dL Assessment and Plan Plan: Acute hypoxic respiratory failure, currently on 8 L of oxygen by nasal cannula, noted oxygen requirements went up overnight. Subacute dyspnea with worsening shortness of breath and development of hypoxemic respiratory failure, currently under investigation. Rule out underlying pneumonia bacterial versus viral. Rule out drug-induced pneumonitis may get secondary to Tagrisso or amiodarone. Malignancy progression is felt to be less likely as the patient has responded nicely to Tagrisso in the past. I reviewed the CAT scan of the chest and the patient has diffuse groundglass bilateral pulmonary infiltrates, suspicious for drug-induced pneumonitis. Procalcitonin level is low. proBNP level is low. Stage IV pulm adenocarcinoma currently on Tagrisso, the third generation tyrosine kinase and is inhibitor for treatment of EGFR-TKI positive patients and the patient has received treatment through [facility]. History of malignant pleural effusion on the left Coronary artery disease History of aortic valve stenosis status post TAVR Obstructive sleep apnea Chronic A-fib, rate is controlled for now and the patient has a bundle branch block pattern, right-sided Hypertension Hyperlipidemia CHF with preserved LV function Diabetes mellitus type 2 Osteoarthritis Chronic back pain BPH Peripheral neuropathy Plan Keep the patient on O2 at 8 L/min nasal cannula Check procalcitonin level and proBNP l levels are low Check Legionella urine antigen is negative The viral screen has been negative Continue current antibiotic coverage with essentially empiric Hold Tagrisso Hold amiodarone Start the patient on IV Solu-Medrol 60 mg every 6 hours I reviewed the CAT scan of the chest Will be glad to coordinate care with the physicians at [facility] regarding the above-mentioned abnormalities. May also consider bronchoscopy and transbronchial biopsies preferably done at [facility] to further distinguish between different forms of pneumonitis Will start steroids due to the concern for a drug-induced pneumonitis Will continue to follow
[2024-03-23] MEDS ORDERED: DEXTROSE 50% SYRINGE 50 ML IVP PRN ×2 (21:30)
[2024-03-24] MEDS: INSULIN ASPART (NovoLOG) 100 UNIT/ML VIAL SQ SCH (06:32)
[2024-03-24 07:27] LABS: African American GFR (CKD) >90 (>60 ml/min/1.73 sqM); Anion Gap 10 mmol/L; Blood Urea Nitrogen 23 mg/dL (9-20); Calcium 9.3 mg/dL (8.4-10.2); Carbon Dioxide 26 mmol/L (22-30); Chloride 101 mmol/L (98-107); Glucose 313 mg/dL (74-99); Non-African American GFR(CKD) 83 (>60 ml/min/1.73 sqM); Potassium 4.6 mmol/L (3.5-5.1); Sodium 137 mmol/L (137-145)
--- NOTE | 2024-03-24 10:53 | CA ---
Transthoracic Echo Report Name: Sam Chen Age: 73 Gender: M : 1950 Exam Date: 03/24/2024 08:40 Exam Location: [place] [facility] Ht (in): 70 Wt (lb): 166 Ordering Physician: Shavon Paniagua MD ([id number]) Attending/Referring Phys: Call Taker Mary Kay Elkins RDCS Procedure CPT: Indications: afib Cardiac Hx: TAVR Technical Quality: Good Contrast 1: Total Dose (mL): Contrast 2: Total Dose (mL): MEASUREMENTS (Male / Female) Normal Values 2D ECHO LV Diastolic Diameter PLAX 4.3 cm 4.2 - 5.9 / 3.9 - 5.3 cm LV Systolic Diameter PLAX 3.6 cm IVS Diastolic Thickness 1.6 cm 0.6 - 1.0 / 0.6 - 0.9 cm LVPW Diastolic Thickness 1.7 cm 0.6 - 1.0 / 0.6 - 0.9 cm LV Relative Wall Thickness 0.8 RV Internal Dim ED PLAX 3.7 cm LA Systolic Diameter LX 4.3 cm 3.0 - 4.0 / 2.7 - 3.8 cm LV Diastolic Volume MOD 4C 182.4 cm??? LV Systolic Volume MOD 4C 87.8 cm??? LV Ejection Fraction MOD 4C 51.9 % LV Cardiac Index MOD 4C 4016.0 cm???/min???m??? LV Diastolic Length 4C 8.4 cm LV Systolic Length 4C 7.4 cm LV Diastolic Volume MOD 2C 177.7 cm??? LV Systolic Volume MOD 2C 47.9 cm??? LV Ejection Fraction MOD 2C 73.0 % LV Cardiac Index MOD 2C 5505.1 cm???/min???m??? LV Diastolic Length 2C 8.5 cm LV Systolic Length 2C 6.5 cm LA Volume 103.7 cm??? 18 - 58 / 22 - 52 cm??? LA Volume Index 53.7 cm???/m??? 16 - 28 cm???/m??? M-MODE Aortic Root Diameter MM 4.7 cm AV Cusp Separation MM 2.5 cm DOPPLER AV Peak Velocity 195.0 cm/s AV Peak Gradient 15.2 mmHg AV Mean Velocity 124.3 cm/s AV Mean Gradient 10.3 mmHg AV Velocity Time Integral 40.6 cm AI Peak Velocity 330.0 cm/s AI Peak Gradient 43.6 mmHg AI Pressure Half Time 407.3 ms LVOT Peak Velocity 184.2 cm/s LVOT Peak Gradient 13.6 mmHg LVOT Velocity Time Integral 46.0 cm MV Area PHT 3.8 cm??? Mitral E Point Velocity 116.0 cm/s Mitral A Point Velocity 126.8 cm/s Mitral E to A Ratio 0.9 MV Deceleration Time 197.6 ms TR Peak Velocity 305.7 cm/s TR Peak Gradient 37.4 mmHg Right Ventricular Systolic Press 41.4 mmHg FINDINGS Left Ventricle Left ventricular ejection fraction is estimated at 45-50 %. Left ventricular cavity size normal. Moderate concentric left ventricular hypertrophy. Right Ventricle Moderate right ventricular dilatation. Mild pulmonary hypertension. Right Atrium Normal right atrial size. No right atrial thrombus or mass seen. Left Atrium Mildly increased left atrial diameter. Severely increased left atrial volume. Mildly increased left atrial area. No left atrial thrombus or mass present. Mitral Valve Structurally normal mitral valve. Moderate mitral annular calcification of posterior leaflet Aortic Valve Normally functioning bioprosthetic aortic valve without stenosis with a peak velocity of 15 m/s, peak gradient mmHg,10 mean gradient mmHg. Mild paravalvular aortic regurgitation. Tricuspid Valve Structurally normal tricuspid valve. Mild tricuspid regurgitation. Pulmonic Valve Structurally normal pulmonic valve. Trace to mild pulmonic regurgitation. Pericardium No pericardial or pleural effusion. Aorta Severe aortic dilatation at the level of the sinuses of valsalva 47 mm CONCLUSIONS Mild LV systolic dysfunction with evidence of concentric left ventricular hypertrophy Mild pulmonary hypertension normally functioning bioprosthetic valve with mild aortic regurgitation Severe posterior mitral annular calcification Consider transesophageal echo if clinically indicated for more definitive evaluation of the prosthetic valve Dilated aortic root Previewed by: Dr. Yazan Carmona MD (Electronically Signed) Final Date: 24 March 2024 10:52
--- NOTE | 2024-03-24 12:50 | P.PN ---
Subjective Progress Note Date: 03/24/24 History of present illness: This is a pleasant 73-year-old gentleman with a past medical history of bicuspid aortic valve with severe aortic stenosis for which she was initially recommended to undergo SAVR but was subsequently diagnosed with non-small cell lung cancer and started on treatment with Tagrisso so subsequently underwent TAVR at the [facility]. He underwent cardiac catheterization in [address] Solis which showed no evidence of coronary artery disease. He has been following at the [facility] for cardiology. He was diagnosed with atrial fibrillation in 2019 that was paroxysmal. He was subsequently found to have persistent atrial fibrillation in September of this year and underwent cardioversion which lasted about 4 days and he subsequently underwent cardioversion after amiodarone loading in November after being hospitalized with congestive heart failure, likely diastolic in nature. He had been feeling well maintained on amiodarone 200 mg daily and maintaining sinus mechanism. Recently he has been feeling progressively more short of breath but no edema or weight gain noted at home. He initially presented to [facility] and thought to have pneumonia and was therefore transferred here to [facility]. Has been evaluated by pulmonary and felt to have drug-induced pneumonitis secondary to either Tagrisso versus amiodarone. He is being initiated on steroids. Amiodarone and Tagrisso have been placed on hold. He is currently on 8 L nasal cannula. NT proBNP was not elevated. He is overall feeling a bit better. Patient's most recent echocardiogram was done at the [facility] heat which he was told to have normal heart function and minimal perivalvular leak. 03/24/2024 Patient reports that he has been feeling great. He is ambulatory in the room. He is still on 8 L nasal cannula O2. BNP was unremarkable. He remains in normal sinus rhythm. Echocardiogram shows EF 45-50%, no significant valve issues, no indication for JOHNATHON. TSH is normal. PHYSICAL EXAMINATION: This is a 73-year-old male in no apparent distress at the time of my examination. VITAL SIGNS: Reviewed. HEENT: Head is atraumatic, normocephalic. Pupils are equal, round. Sclerae anicteric. Conjunctivae are clear. Mucous membranes of the mouth are moist. Neck is supple. There is no elevated jugular venous pressure. No carotid bruit is heard. CHEST EXAMINATION: Clear to auscultation bilaterally. No wheezes rales or r honchi. Respirations even and nonlabored. HEART EXAMINATION: Heart regular, positive S1 and S2. No S3. No S4. Diastolic murmur at the base. ABDOMEN: Soft, nontender. Bowel sounds are heard. EXTREMITIES: 2+ peripheral pulses with no evidence of peripheral edema and no calf tenderness noted. NEUROLOGIC EXAMINATION: Patient is awake, alert and oriented x3. Assessment: #1 acute hypoxic respiratory failure likely secondary to drug-induced pneumonitis secondary to Tagrisso versus amiodarone #2 persistent atrial fibrillation, status post cardioversion, maintaining sinus mechanism on amiodarone #3 status post TAVR #4 stage IV non-small cell lung cancer #5 left bundle branch block Plan: Symptoms are likely related to lung issues. From cardiology's perspective continue to hold amiodarone. Continue anticoagulation and metoprolol. We will o btain records from [facility] to sign off, please call with any concerns or questions. Follow-up with marketing director in 1-2 weeks. MICROFABRICATION ENGINEER MANAGER note has been reviewed, I agree with a documented findings and plan of care. Patient was seen and examined. Objective - Vital Signs Vital signs: Vital Signs Temp 97.9 F 03/24/24 08:10 Pulse 84 03/24/24 12:06 Resp 18 03/24/24 12:06 BP 157/76 03/24/24 12:06 Pulse Ox 93 L 03/24/24 12:06 FiO2 60 03/24/24 04:58 Intake & Output 03/23/24 03/24/24 03/24/24 18:59 06:59 18:59 Intake Total 1530 10 180 Balance 1530 10 180 Weight 115.8 kg Intake: IV 10 Invasive Line 2 10 Oral 1530 180 Other: Voiding Method Urinal Toilet Toilet Urinal Urinal # Voids 2 - Labs CBC & Chem 7: 03/23/24 07:15 03/24/24 06:56 Labs: Abnormal Lab Results - Last 24 Hours (Table) 03/24/24 Range/Units 06:56 BUN 23 H (9-20) mg/dL Glucose 313 H (74-99) mg/dL Microbiology - Last 24 Hours (Table) 03/22/24 23:02 Gram Stain - Preliminary Sputum Sputum Culture - Preliminary Ashley albicans
--- NOTE | 2024-03-24 18:14 | P.PN ---
Subjective Progress Note Date: 03/24/24 On 03/23/2024, the patient is being seen for a follow-up. Overnight, the oxygenation has gotten worse and the patient is currently on 80 days of oxygen by nasal cannula. Denies having any worsening in the breathing. A full CAT scan of the chest was done yesterday and the patient was found to have diffuse bilateral groundglass pulm infiltrates more so in the middle lung base bilaterally. There is a tiny left-sided pleural effusion and a trace right- sided pleural effusion. No evidence of any pneumothorax. There is also cardiomegaly along with evidence of pulmonary arterial hypertension. I suspect those findings are drug-induced pneumonitis. Infectious etiologies are felt to be less likely. The patient's proBNP level was at 383 and the procalcitonin level was at 0.06. Electrolytes are all within normal limits on today's evaluation. The white cell count is at 7.6 with a hemoglobin 12.9 and a platelet count of 133. Awake and alert. Does not look toxic at all. Repeat echocardiogram was ordered. The patient is seen today March 24, 2024 in follow-up on the selective care unit. He is currently sitting up in bed. Awake and alert in no acute distress. States he is feeling quite a bit better. He is maintaining O2 saturations in the 90s on 4 L/min per nasal cannula. His Tagrisso and amiodarone are both on hold. He is doing well on steroids. Sodium 137. Potassium 4.6. Bicarb 26. BUN 23. Creatinine 0.92. Glucose 313. Objective - Vital Signs Vital signs: Vital Signs Temp 97.9 F 03/24/24 08:10 Pulse 94 03/24/24 16:39 Resp 18 03/24/24 16:39 BP 126/75 03/24/24 16:39 Pulse Ox 94 L 03/24/24 16:39 FiO2 60 03/24/24 04:58 Intake & Output 03/23/24 03/24/24 03/24/24 18:59 06:59 18:59 Intake Total 1530 10 930 Balance 1530 10 930 Weight 115.8 kg Intake: IV 10 Invasive Line 2 10 Oral 1530 930 Other: Voiding Method Urinal Toilet Toilet Urinal Urinal # Voids 2 - Exam GENERAL EXAM: Alert, active, pleasant 73-year-old male, on 4 L nasal cannula, comfortable in no apparent distress. HEAD: Normocephalic. EYES: Normal reaction of pupils, equal size. NOSE: Clear with pink turbinates. THROAT: No erythema or exudates. NECK: No masses, no JVD. CHEST: No chest wall deformity. LUNGS: Equal air entry with bibasilar crackles. CVS: S1 and S2 normal with no audible murmur, regular rhythm. ABDOMEN: No hepatosplenomegaly, normal bowel sounds, no guarding or rigidity. SPINE: No scoliosis or deformity SKIN: No rashes CENTRAL NERVOUS SYSTEM: No focal deficits, tone is normal in all 4 extremities. EXTREMITIES: There is no peripheral edema. No clubbing, no cyanosis. Peripheral pulses are intact. - Labs CBC & Chem 7: 03/23/24 07:15 03/24/24 06:56 Labs: Abnormal Lab Results - Last 24 Hours (Table) 03/24/24 03/24/24 Range/Units 06:56 06:56 BUN 23 H (9-20) mg/dL Glucose 313 H (74-99) mg/dL Hemoglobin A1c 7.4 H (<=6.0) % Microbiology - Last 24 Hours (Table) 03/22/24 23:02 Gram Stain - Preliminary Sputum Sputum Culture - Preliminary Ashley albicans Assessment and Plan Assessment: Acute hypoxic respiratory failure, currently on 4 L of oxygen by nasal cannula, noted oxygen requirements went up overnight. Subacute dyspnea with worsening shortness of breath and development of hypoxemic respiratory failure, currently under investigation. Rule out underlying pneumonia bacterial versus viral. Rule out drug-induced pneumonitis may get secondary to Tagrisso or amiodarone. Malignancy progression is felt to be less likely as the patient has responded nicely to Tagrisso in the past. CAT scan of the chest has diffuse groundglass bilateral pulmonary infiltrates, suspicious for drug-induced pneumonitis. Procalcitonin level is low. proBNP level is low. Stage IV pulm adenocarcinoma currently on Tagrisso, the third generation tyrosine kinase and is inhibitor for treatment of EGFR-TKI positive patients and the patient has received treatment through [facility]. History of malignant pleural effusion on the left Coronary artery disease History of aortic valve stenosis status post TAVR Obstructive sleep apnea Chronic A-fib, rate is controlled for now and the patient has a bundle branch block pattern, right-sided Hypertension Hyperlipidemia CHF with preserved LV function Diabetes mellitus type 2 Osteoarthritis Chronic back pain BPH Peripheral neuropathy Plan: The patient was seen and evaluated Improved and on 4 L nasal cannula Continue to hold Tagrisso and amiodarone Continued on IV Solu-Medrol Titrate the FiO2 as tolerated We will continue to follow I have personally seen and examined the patient, performed the documentation and the assessment and plan as written. Number of minutes spent on the visit: 10.
--- NOTE | 2024-03-25 05:11 | P.PN ---
Subjective Progress Note Date: 03/24/24 73-year-old male present to the emergency department as a transfer from [facility]. Patient has had progressive dyspnea over the past couple of weeks. Patient states his doctor questioned amiodarone toxicity. Patient has no cough. Dyspnea is exertional as well as orthopnea. No leg edema. No fever. No chest pain. Patient states symptoms do feel somewhat like previous CHF. Patient x-ray and CT scan showed bilateral pneumonia. The patient was hospitalized few months back at [facility] for worsening shortness of breath and he was told that his shortness of breath was a ttributed to CHF. Currently is on amiodarone 200 mg p.o. daily. He is also on anticoagulation with Xarelto. He has developed progressive increased dyspnea. Chest x-ray that was done at an outside hospital indicated pneumonia and for that reason the patient was transferred to us. He is currently on 4 L of oxygen by nasal cannula. Blood gas on room air oxygen showed a pH of 7.4 with a pCO2 of 39 and pO2 of 41. -Patient currently maintaining oxygen saturation around 94% on HFNC at 9 liters; continues to get dyspneic and desaturates with ambulating to the bathroom Blood work completed this morning reveals a WBC of 7.6, hemoglobin of 12.9 and platelet count of 133, sodium 138, potassium 4.3, BUNs/creatinine of 17/0.95; BNP of 383, procalcitonin normal at 0.06 --Patient has been evaluated by pulmonary service and recommending to hold off on Tagrisso and amiodarone given possibility of drug-induced pneumonitis; patient remains on IV antibiotics for possible bacterial pneumonia; patient has been placed on Solu-Medrol 60 mg IV every 6 hours for possible pneumonitis -- Patient has been evaluated by cardiology and recommending to continue to hold amiodarone; patient remains on metoprolol and remains systemically anticoagulated for persistent atrial fibrillation; 2D echo is recommended and pending 03/24/2024 Patient is seen in follow-up with cardiology and pulmonary following and maintained on 6 L via nasal cannula and will transition and wean FiO2 as tolerated. Patient is using the BiPAP at night and chronically wears a CPAP at night. Patient is continued on IV steroids along with antibiotics and sputum culture showing Ashley albicans, will add Diflucan. Patient reports to feeling significantly improved from presentation although continues to have some shortness of breath. Patient reports he has been up and walking around in the room frequently and has been attempting to wean FiO2 as well. Review of systems: Constitutional: No reports of fatigue, fever, or chills Cardiovascular: No reports of chest pain or palpitations Respiratory: reports of shortness of breath although reports to feeling somewhat improved GI: No reports of nausea, vomiting, or diarrhea : No reports of dysuria or retention Neurovascular: No reports of weakness or numbness All medications have been reviewed Physical exam: Gen: This is a 73-year-old male who is awake, alert and oriented x 3, well- developed, elderly appearing, obese HEENT: Head is atraumatic, normocephalic. Pupils equal, round. Sclerae is anicteric. NECK: Supple. No JVD. No lymphadenopathy. No thyromegaly. LUNGS: Diminished breath sounds bilaterally with some coarse scattered rhonchi. No intercostal retractions. HEART: S1, S2 are muffled ABDOMEN: Soft. Obese. Bowel sounds are present. No masses. No tenderness. EXTREMITIES: No pedal edema. No calf tenderness. NEUROLOGICAL: Patient is awake, alert and oriented x3. Cranial nerves 2 through 12 are grossly intact. Assessment: -Acute hypoxic respiratory failure, concerns for drug-induced pneumonitis per pulmonary, currently on 6 L and weaning down to 4 L -Possible pneumonia, felt less likely, continue antibiotics and DuoNeb treatments -Stage IV pulmonary adenocarcinoma; currently on Tagrisso, the third generation tyrosine kinase and is inhibitor for treatment of EGFR-TKI positive patients and the patient has received treatment through [facility]; Tagrisso is placed on hold per pulmonary recommendations. -History of left-sided malignant pleural effusion -Hypertension; metoprolol 50 mg twice daily; Aldactone 25 mg nightly -Hyperlipidemia; Zetia 10 mg daily -Diabetes mellitus type 2; metformin 500 mg twice daily; monitor Accu-Cheks q. ACH S with insulin sliding scale -Chronic atrial fibrillation; pulmonary recommending to hold amiodarone -Coronary artery disease/CHF history -Obesity with a BMI of 36.6 -GI prophylaxis -DVT prophylaxis; SCDs/systemic anticoagulation -full code Plan: Continue current regimen and DuoNeb treatments along with supplemental oxygen and wean FiO2 as tolerated. Currently on 6 L and have titrated to 4 L and let nursing staff know to continue to wean FiO2. Continue to encourage incentive spirometer at least 10 times every hour while awake Sputum culture showing Ashley albicans and will add Diflucan Continue empiric antibiotics with pulmonary following Cardiology following as well Encouraged increase activity as tolerated with frequent walking and will discuss with other consultations regarding discharge planning Will need to discuss with case management in the event patient needs oxygen on discharge The impression and plan of care has been dictated by Yanet Barrios, Nurse Practitioner as directed. Dr. Amairani MD I have performed a history and examination and MDM of this patient, discussed the same with the dictator, and agree with the dictator's assessment and plan as written ,documented as a scribe. Based on total visit time, I have performed more than 50% of the visit. Objective - Vital Signs Vital signs: Vital Signs Temp 97.9 F 03/24/24 08:10 Pulse 88 03/24/24 08:35 Resp 18 03/24/24 08:14 BP 151/76 03/24/24 08:10 Pulse Ox 96 03/24/24 08:14 FiO2 60 03/24/24 04:58 Intake & Output 03/23/24 03/24/24 03/24/24 18:59 06:59 18:59 Intake Total 1530 10 180 Balance 1530 10 180 Weight 115.8 kg Intake: IV 10 Invasive Line 2 10 Oral 1530 180 Other: Voiding Method Urinal Toilet Urinal # Voids 2 - Labs CBC & Chem 7: 03/23/24 07:15 03/24/24 06:56 Labs: Abnormal Lab Results - Last 24 Hours (Table) 03/24/24 Range/Units 06:56 BUN 23 H (9-20) mg/dL Glucose 313 H (74-99) mg/dL
[2024-03-25] MEDS: FLUCONAZOLE 100 MG TAB PO SCH (09:18)
[2024-03-25 10:12] VITALS: TEMP 98
[2024-03-25] MEDS: INSULIN DETEMIR (LEVEMIR) 100 UNIT/ML SYR SQ SCH (11:02)
[2024-03-25 12:31] VITALS: BP 138/74; PULSE 78; RESP 18
--- NOTE | 2024-03-25 14:43 | XR ---
EXAMINATION TYPE: XR chest 1V portable DATE OF EXAM: 03/25/2024 COMPARISON: 03/23/2024 HISTORY: Shortness of breath TECHNIQUE: Frontal and lateral views of the chest are obtained. FINDINGS: Scattered senescent parenchymal changes noted. Hyperinflation compatible with COPD. Perihilar and basilar interstitial infiltrates persist although they are much improved. Continued fol low-up is recommended. No evidence for atelectasis. Heart size is stable. Mediastinal structures are stable and grossly unremarkable. No evidence for hilar prominence. Degenerative changes dorsal spine. IMPRESSION: 1. Perihilar and basilar interstitial infiltrates persist although they are much improved. Continued follow-up is recommended. [facility], , 03/25/2024 2:40 PM
--- NOTE | 2024-03-25 16:02 | P.PN ---
Subjective Progress Note Date: 03/25/24 Principal diagnosis: Medications induced pneumonitis On 03/23/2024, the patient is being seen for a follow-up. Overnight, the oxygenation has gotten worse and the patient is currently on 80 days of oxygen by nasal cannula. Denies having any worsening in the breathing. A full CAT scan of the chest was done yesterday and the patient was found to have diffuse bilateral groundglass pulm infiltrates more so in the middle lung base bilaterally. There is a tiny left-sided pleural effusion and a trace right- sided pleural effusion. No evidence of any pneumothorax. There is also cardiomegaly along with evidence of pulmonary arterial hypertension. I suspect those findings are drug-induced pneumonitis. Infectious etiologies are felt to be less likely. The patient's proBNP level was at 383 and the procalcitonin level was at 0.06. Electrolytes are all within normal limits on today's evaluation. The white cell count is at 7.6 with a hemoglobin 12.9 and a platelet count of 133. Awake and alert. Does not look toxic at all. Repeat echocardiogram was ordered. The patient is seen today March 24, 2024 in follow-up on the selective care unit. He is currently sitting up in bed. Awake and alert in no acute distress. States he is feeling quite a bit better. He is maintaining O2 saturations in the 90s on 4 L/min per nasal cannula. His Tagrisso and amiodarone are both on hold. He is doing well on steroids. Sodium 137. Potassium 4.6. Bicarb 26. BUN 23. Creatinine 0.92. Glucose 313. Patient was evaluated today on 03/25/2024, patient is doing great, feeling much better, he is on room air, chest x-ray is showing significant improvement in his bilateral infiltrates. Patient would like to go home, hence my recommendation is to clear for discharge as long as he is cleared by other consultants, and he needs to be on prednisone at 40 mg tapered on outpatient basis for his medications induced pneumonitis, I strongly believe it is Tagrisso induced pne umonitis unless proven otherwise l Objective - Vital Signs Vital signs: Vital Signs Temp 98.0 F 03/25/24 08:30 Pulse 78 03/25/24 14:00 Resp 18 03/25/24 14:00 BP 138/74 03/25/24 12:00 Pulse Ox 94 L 03/25/24 12:00 FiO2 30 03/25/24 06:08 Intake & Output 03/24/24 03/25/24 03/25/24 18:59 06:59 18:59 Intake Total 930 560 700 Balance 930 560 700 Weight 115.6 kg Intake: IV 20 Invasive Line 2 20 Oral 930 540 700 Other: Voiding Method Toilet Toilet Toilet Urinal Urinal Urinal # Voids 1 2 - Exam GENERAL EXAM: Alert, active, pleasant 73-year-old male, on room air and O2 saturation is 94% HEAD: Normocephalic. EYES: Normal reaction of pupils, equal size. NOSE: Clear with pink turbinates. THROAT: No erythema or exudates. NECK: No masses, no JVD. CHEST: No chest wall deformity. LUNGS: Equal air entry, clear throughout no crackles rhonchi or wheezes CVS: S1 and S2 normal with no audible murmur, regular rhythm. ABDOMEN: No hepatosplenomegaly, normal bowel sounds, no guarding or rigidity. SKIN: No rashes CENTRAL NERVOUS SYSTEM: No focal deficits, tone is normal in all 4 extremities. EXTREMITIES: There is no peripheral edema. No clubbing, no cyanosis. Peripheral pulses are intact. - Labs CBC & Chem 7: 03/23/24 07:15 03/24/24 06:56 Labs: Microbiology - Last 24 Hours (Table) 03/22/24 23:02 Gram Stain - Final Sputum Sputum Culture - Final Ashley albicans Ashley glabrata Assessment and Plan Assessment: Impression Acute hypoxic respiratory failure, most likely secondary to medications induced pneumonitis/Tagrisso Subacute dyspnea with worsening shortness of breath and development of hypoxemic respiratory failure, currently under investigation. Rule out underlying pneumonia bacterial versus viral. Rule out drug-induced pneumonitis may get secondary to Tagrisso or amiodarone. Malignancy progression is felt to be less likely as the patient has responded nicely to Tagrisso in the past. CAT scan of the chest has diffuse groundglass bilateral pulmonary infiltrates, suspicious for drug-induced pneumonitis. Procalcitonin level is low. proBNP level is low. Stage IV pulm adenocarcinoma currently on Tagrisso, the third generation tyrosine kinase and is inhibitor for treatment of EGFR-TKI positive patients and the patient has received treatment through [facility]. History of malignant pleural effusion on the left Coronary artery disease History of aortic valve stenosis status post TAVR Obstructive sleep apnea Chronic A-fib, rate is controlled for now and the patient has a bundle branch block pattern, right-sided Hypertension Hyperlipidemia CHF with preserved LV function Diabetes mellitus type 2 Osteoarthritis Chronic back pain BPH Peripheral neuropathy Plan: Considering the clinical improvement and considering the chest x-ray improvement I would recommend that the patient remains on prednisone 40 mg tapered on outpatient basis Patient could be discharged home on prednisone and to go back on his usual medications but not amiodarone and not Tagrisso until evaluated outpatient basis, patient will make appointment to see Dr. Ortiz in 1 week We will continue to follow if the patient is not discharged home today Time with Patient: Less than 30
[2024-03-28 15:04] LABS: Glucose,Whole Blood 297 mg/dL (70-110)
[2024-03-28 15:04] LABS: Glucose,Whole Blood 378 mg/dL (70-110)
[2024-03-28 15:04] LABS: Glucose,Whole Blood 331 mg/dL (70-110)
[2024-03-28 15:04] LABS: Glucose,Whole Blood 340 mg/dL (70-110)
[2024-03-28 15:04] LABS: Glucose,Whole Blood 391 mg/dL (70-110)
[2024-03-28 15:05] LABS: Glucose,Whole Blood 336 mg/dL (70-110)
[2024-03-28 15:05] LABS: Glucose,Whole Blood 249 mg/dL (70-110)
[2024-03-28 15:05] LABS: Glucose,Whole Blood 367 mg/dL (70-110)
[2024-03-28 15:05] LABS: Glucose,Whole Blood 302 mg/dL (70-110)
[2024-03-28 15:06] LABS: Glucose,Whole Blood 169 mg/dL (70-110)
[2024-03-28 15:06] LABS: Glucose,Whole Blood 153 mg/dL (70-110)
--- NOTE | 2024-03-31 09:41 | P.DS ---
Providers Date of admission: 03/22/24 12:49 Expected date of discharge: 03/25/24 Attending physician: Destin Thorne MD Consults: 03/22/24 12:52 Consult Physician Urgent Consulting Provider: Jose Guadalupe Soria Consult Reason/Comments: dyspnea Do you want consulting provider notified?: Yes Primary care physician: Wade Arciniega MD Hospital Course: Final diagnosis -Acute hypoxic respiratory failure, concerns for drug-induced pneumonitis per pulmonary, improved and on room air -Possible pneumonia, felt less likely, continue antibiotics and DuoNeb treatments -Stage IV pulmonary adenocarcinoma; currently on Tagrisso, the third generation tyrosine kinase and is inhibitor for treatment of EGFR-TKI positive patients and the patient has received treatment through [facility]; Tagrisso is placed on hold per pulmonary recommendations. -History of left-sided malignant pleural effusion -Hypertension; metoprolol 50 mg twice daily; Aldactone 25 mg nightly -Hyperlipidemia; Zetia 10 mg daily -Diabetes mellitus type 2; metformin 500 mg twice daily; monitor Accu-Cheks q. ACH S with insulin sliding scale -Chronic atrial fibrillation; pulmonary recommending to hold amiodarone -Coronary artery disease/CHF history -Obesity with a BMI of 36.6 -GI prophylaxis -DVT prophylaxis; SCDs/systemic anticoagulation -full code Discharge disposition Patient is being discharged in a stable condition with guarded prognosis to home. Patient will follow-up with Dr. Remi Arciniega in the outpatient setting upon discharge. Patient is to continue with prednisone taper and outpatient follow-up with pulmonary along with cardiology follow-up and his oncologist out of [facility] as scheduled. Total time taken is greater than 35 minutes. Hospital course This is a 73-year-old male who was recently admitted with acute hypoxic respiratory failure being closely monitored initially with concerns of pneumonia. Multiple consultations following patient maintained on empiric antibiotic along with DuoNebs and steroids with pulmonary following. More likely concerns with pneumonitis and patient is showing some clinical improvement weaned off oxygen on room air. Patient reports to feeling significantly improved and would like to go home. Patient follows at [facility] for his oncology and will follow-up outpatient. Patient has been cleared by consultations. Please refer to other consultation notes for further HPI. Currently no reports of chest pain, shortness of breath, or palpitations. Patient is afebrile. No reports of nausea or vomiting and patient is tolerating diet. Patient will be discharged home today. Physical exam: Gen: This is a 73-year-old male who is awake, alert and oriented x 3, well- developed, well-nourished, obese HEENT: Head is atraumatic, normocephalic. Pupils equal, round. Sclerae is anicteric. NECK: Supple. No JVD. No lymphadenopathy. No thyromegaly. LUNGS: Diminished breath sounds bilaterally with a few scattered rhonchi. No intercostal retractions. HEART: Regular rate and rhythm. No murmur. ABDOMEN: Soft. Obese. Bowel sounds are present. No masses. No tenderness. EXTREMITIES: No pedal edema. No calf tenderness. NEUROLOGICAL: Patient is awake, alert and oriented x3. Cranial nerves 2 through 12 are grossly intact. Please refer to medication reconciliation sheet for a list of medications. The impression and plan of care has been dictated by Yanet Barrios, Nurse Practitioner as directed. Dr. Aysha MD I have performed a history and examination and MDM of this patient, discussed the same with the dictator, and agree with the dictator's assessment and plan as written ,documented as a scribe. Based on total visit time, I have performed more than 50% of the visit. Patient Condition at Discharge: Fair Plan - Discharge Summary Discharge Rx Participant: No New Discharge Prescriptions: New Fluconazole [Diflucan] 100 mg PO DAILY 7 Days #7 tab Acetaminophen Tab [Tylenol] 650 mg PO Q6HR PRN tab PRN Reason: Fever And/ Or Pain predniSONE See Taper PO DIRECTED #30 tab Continue Rivaroxaban [Xarelto] 20 mg PO HS Ezetimibe [Zetia] 10 mg PO HS Tamsulosin [Flomax] 0.4 mg PO HS Fluticasone Nasal Henry [Flonase Nasal Henry] 2 spray EA NOSTRIL HS Spironolactone 25 mg PO HS metFORMIN HCL 500 mg PO BID Gabapentin [Neurontin] 300 mg PO BID Omeprazole [PriLOSEC] 40 mg PO HS Metoprolol Succinate (ER) [Toprol XL] 50 mg PO BID Albuterol Inhaler [Ventolin Hfa Inhaler] 1 - 2 puff INHALATION RT-Q4H PRN PRN Reason: Shortness Of Breath Furosemide [Lasix] 40 mg PO DAILY Discontinued Amiodarone [Cordarone] 200 mg PO DAILY Osimertinib Mesylate [Tagrisso] 80 mg PO DAILY Discharge Medication List Ezetimibe [Zetia] 10 mg PO HS 05/15/22 [History] Fluticasone Nasal Henry [Flonase Nasal Henry] 2 spray EA NOSTRIL HS 05/15/22 [History] Gabapentin [Neurontin] 300 mg PO BID 05/15/22 [History] Omeprazole [PriLOSEC] 40 mg PO HS 05/15/22 [History] Rivaroxaban [Xarelto] 20 mg PO HS 05/15/22 [History] Tamsulosin [Flomax] 0.4 mg PO HS 05/15/22 [History] Albuterol Inhaler [Ventolin Hfa Inhaler] 1 - 2 puff INHALATION RT-Q4H PRN 03/22/24 [History] Furosemide [Lasix] 40 mg PO DAILY 03/22/24 [History] Metoprolol Succinate (ER) [Toprol XL] 50 mg PO BID 03/22/24 [History] Spironolactone 25 mg PO HS 03/22/24 [History] metFORMIN HCL 500 mg PO BID 03/22/24 [History] Acetaminophen Tab [Tylenol] 650 mg PO Q6HR PRN tab 03/25/24 [Rx] Fluconazole [Diflucan] 100 mg PO DAILY 7 Days #7 tab 03/25/24 [Rx] predniSONE See Taper PO DIRECTED #30 tab 03/25/24 [Rx] Follow up Appointment(s)/Referral(s): Oniel Hillman MD [STAFF PHYSICIAN] - 1 Week (Appt 04/23/24 8:45am) Wade Arciniega MD [Primary Care Provider] - 1-2 days Activity/Diet/Wound Care/Special Instructions: Activity limited until follow-up Follow-up with primary care provider Follow-up out of [facility] with oncologist Follow-up with cardiology on discharge Follow-up pulmonary outpatient Discharge Disposition: HOME SELF-CARE
== END 2024-03-25 15:49 | disposition home or self-care (01) | DRG 205 ==
LOC: EC 12:09 → 3SCARD 12:49
PROVIDERS: ADMIT Internal Medicine; ATTEND Internal Medicine
DX: J70.4 Drug-induced interstitial lung disorders, unspecified (principal); J96.01 Acute respiratory failure with hypoxia; B37.89 Other sites of candidiasis; J91.0 Malignant pleural effusion; C34.90 Malignant neoplasm of unspecified part of unspecified bronchus or lung; I50.32 Chronic diastolic (congestive) heart failure; I48.19 Other persistent atrial fibrillation; I27.21 Secondary pulmonary arterial hypertension; I11.0 Hypertensive heart disease with heart failure; E11.42 Type 2 diabetes mellitus with diabetic polyneuropathy; E66.9 Obesity, unspecified; G47.33 Obstructive sleep apnea (adult) (pediatric); I44.7 Left bundle-branch block, unspecified; E78.5 Hyperlipidemia, unspecified; I25.10 Atherosclerotic heart disease of native coronary artery without angina pectoris; J98.4 Other disorders of lung; M54.9 Dorsalgia, unspecified; G89.29 Other chronic pain; N40.0 Benign prostatic hyperplasia without lower urinary tract symptoms; Z96.653 Presence of artificial knee joint, bilateral; Z68.36 Body mass index [BMI] 36.0-36.9, adult; Z79.01 Long term (current) use of anticoagulants; Z95.3 Presence of xenogenic heart valve; Z87.891 Personal history of nicotine dependence; Z79.84 Long term (current) use of oral hypoglycemic drugs; Z79.899 Other long term (current) drug therapy; Z87.74 Personal history of (corrected) congenital malformations of heart and circulatory system
CPT/HCPCS: 36600; 71045; 71046; 71260; 80048; 82805; 83036; 83880; 84145; 84443; 85025; 87070; 87205; 87449; 93306; 94640; 94660; 94760; 96365; 96366; 99285